=== PATIENT | female | born 1985 | race Caucasian/White ===

== ENCOUNTER → 2023-12-10 01:06 | Outpatient (CLI) | payer BC, SELFPAY ==
--- NOTE | 2023-12-10 07:15 | DI.RAD_ITS ---
Exam(s) XR FOOT LT COMPLETE XR FOOT RT COMPLETE EXAM: XR FOOT LT COMPLETE CLINICAL HISTORY: RHEUMATOID ARTHRITIS, M06.9. TECHNIQUE: 2D digital imaging was performed. Three views of both feet. COMPARISON: CR XR FOOT RT COMPLETE from 12/10/2023 FINDINGS: BONES: No acute fracture is present. No bony destructive lesion is seen. Small plantar calcaneal sp ur on the right. JOINTS: No dislocation present. Joint spaces are maintained. SOFT TISSUE: Normal. IMPRESSION: Small right plantar calcaneal spur. No evidence of bony erosions. No findings specific for rheumato id arthritis. DATA REPOSITORY: RADIATION DOSE DELIVERED:
--- NOTE | 2023-12-10 07:15 | DI.RAD_ITS ---
Exam(s) XR HIP PELVIS ADULT BL EXAM: XR HIP PELVIS ADULT BL CLINICAL HISTORY: RHEUMATOID ARTHRITIS, M06.9. TECHNIQUE: 2D digital imaging was performed. Three views. COMPARISON: No exams were available for comparison FINDINGS: BONES: No acute fracture is present. No bony destructive lesion is seen. Narrowing of the L4-5 disc space is noted which is eccentric toward the right. JOINTS: No dislocation present. SI joints and pubic symphysis are unremarkable. SOFT TISSUE: Normal. IMPRESSION: Unremarkable radiographs of the bilateral hips. Degenerative changes L4-5. DATA REPOSITORY: RADIATION DOSE DELIVERED:
--- NOTE | 2023-12-10 11:18 | DI.RAD_ITS ---
Exam(s) XR ARTHRITIS SERIES EXAM: XR ARTHRITIS SERIES CLINICAL HISTORY: RHEUMATOID ARTHRITIS, M06.9. TECHNIQUE: 2D digital imaging was performed. Two views of both hands. COMPARISON: No exams were available for comparison FINDINGS: BONES: No acute fracture is present. No erosive or productive bony lesions are seen. Bones are roula lly mineralized. JOINTS: No dislocation present. The joint spaces are maintained. SOFT TISSUE: Normal. IMPRESSION: Unremarkable radiographs of the bilateral hands.No findings specific for rheumatoid arthritis. DATA REPOSITORY: RADIATION DOSE DELIVERED:
== END ==
PROVIDERS: PCP Nurse Practitioner Family; Visit Provider Nurse Practitioner Family
DX: M06.9 Rheumatoid arthritis, unspecified (principal); M51.36 Other intervertebral disc degeneration, lumbar region; M25.571 Pain in right ankle and joints of right foot; M77.31 Calcaneal spur, right foot
CPT/HCPCS: 73521; 73120; 73630

== ENCOUNTER 2024-12-29 11:24 | Outpatient (CLI) | payer BC, SELFPAY ==
[2024-12-29 10:26] LABS: Abs Immature Grans 0.01 10^3/uL (0.0-0.06); HCT 42.0 % (36.0-46.0); HGB 13.5 g/dL (11.2-15.7); Immature Grans % 0.2 %; MCH 27.8 pg (27.0-33.0); MCHC 32.1 % (32.0-36.0); MCV 87 fL (80-95); MPV 9.8 fL (8.0-11.0); Platelet Count 243 10^3/uL (130-400); RBC 4.85 10^6/uL (3.93-5.22); RDW 13.8 % (11.7-14.6); RDW-SD 44.0 fL; WBC 6.49 10^3/uL (4.4-10.8)
[2024-12-29 10:29] LABS: Glucose Negative (Negative)
[2024-12-29 10:33] LABS: Hemoglobin A1C 5.0 % (<5.7)
[2024-12-29 10:38] LABS: ESR 13 mm/hr (0-20)
[2024-12-29 10:59] LABS: ALT 28 U/L (14-59); AST 16 U/L (15-37); Albumin 3.6 g/dL (3.4-5.0); Alkaline Phosphatase 68 U/L (46-116); Anion Gap 5.3 mmol/L (3-11); BUN 13 mg/dL (7-18); Bilirubin, Total 0.5 mg/dL (0.2-1.0); C-Reactive Protein < 0.50 mg/dL (<or=0.5); CO2 29.7 mmol/L (21.0-32.0); Calcium 8.8 mg/dL (8.5-10.1); Calculated LDL 83 mg/dL (<100); Chloride 105 mmol/L (98-107); Cholesterol 162 mg/dL (<200); Estimated GFR 113.46 (mL/min/1.73m2); Glucose 95 mg/dL (74-106); HDL Cholesterol 66 mg/dL (>or=50); Potassium 4.5 mmol/L (3.5-5.1); Sodium 140 mmol/L (136-145); TSH (W/Ref FT4) 0.50 uIU/mL (0.36-3.74); Total Protein 7.2 g/dL (6.4-8.2); Triglyceride 69 mg/dL (<150)
[2024-12-29 11:32] LABS: Vitamin D 25 Total 22 ng/mL (30-100)
== END 2024-12-29 11:25 | disposition home or self-care (01) ==
LOC: LBO 11:27
PROVIDERS: PCP Nurse Practitioner Family; Visit Provider Family Medicine
DX: M06.9 Rheumatoid arthritis, unspecified (principal); Z68.37 Body mass index [BMI] 37.0-37.9, adult
CPT/HCPCS: 36415; 80053; 80061; 82306; 85652; 81003; 83036; 84439; 84443; 85025; 86140